=== PATIENT | male | born 1990 | race African-American/Black ===

== ENCOUNTER 2024-07-01 10:29 | Emergency (ER) | payer MEDICAID, OTHER ==
[~2024-07-01] VITALS: Ht 172.7 cm; Wt 95.0 kg
[2024-07-01 10:49] VITALS: BP 166/94; PULSE 102; RESP 18; TEMP 98.2; O2SAT 99
== END 2024-07-01 11:50 | disposition home or self-care (01) ==
LOC: EMS 10:36
DX: F43.21 Adjustment disorder with depressed mood (principal); I10 Essential (primary) hypertension; Z65.3 Problems related to other legal circumstances; Z91.51 Personal history of suicidal behavior
CPT/HCPCS: 99284; Z7502